=== PATIENT | male | born 1960 ===

== ENCOUNTER 2020-03-23 00:33 | Inpatient (IN) | payer SELFPAY ==
[2020-03-23] MEDS ORDERED: Metoprolol Tartrate 5 MG in Sodium Chloride 0.9% 50 ML IV ONE (01:24)
--- NOTE | 2020-03-23 01:31 | EDM.PDOC ---
ED HPI GENERAL MEDICAL PROBLEM - General Chief Complaint: General Stated Complaint: TWITCHING Time Seen by Provider: 03/23/20 00:45 Source of Information: Reports: Patient History Limitations: Reports: No Limitations - History of Present Illness INITIAL COMMENTS - FREE TEXT/NARRATIVE: patient presented to the ER due to '' uncontrollable tremors '' after a head injury due to fall 2 days ago. He reports that he slipped on ice and landed on the back of his head last Thursday ( 2 days ago), resulting on a wound that he decided to clean up. He isn't assure about an LOC. unwitnessed fall. Reports that he started to experience shakiness in b/l arms since then,, intermittent and worse on rest. It has slowly got worse over time ( more frequent ), and resolve when he moves around. No headache, no vision problems, no nausea/emesis, no weakness or numbness or incontinence. Not on any blood thinners. Reports a h/o HTN for which he used to take diuretics but he quit those few years ago. No PCP and not on any meds currently. From [place], here for [employer]. A experienced truck driver. h/o alcohol consumption. around 12 packs of beer daily, last consumption was yesterday. He was brought by EMS, and BP was noted to be high to 200/100 - Related Data Allergies Allergy/AdvReac Type Severity Reaction Status Date / Time No Known Allergies Allergy Verified 03/23/20 01:06 Past Medical History Cardiovascular History: Reports: Hypertension Respiratory History: Reports: None Gastrointestinal History: Reports: None Genitourinary History: Reports: None Endocrine/Metabolic History: Reports: None - Past Surgical History Head Surgeries/Procedures: Reports: None HEENT Surgical History: Reports: None Social & Family History - Tobacco Use Tobacco Use Status *Q: Never Tobacco User - Alcohol Use Days Per Week of Alcohol Use: 7 Number of Drinks Per Day: 6 Total Drinks Per Week: 42 - Recreational Drug Use Recreational Drug Use: No ED ROS GENERAL - Review of Systems Review Of Systems: Comprehensive ROS is negative, except as noted in HPI. Constitutional: Reports: No Symptoms HEENT: Reports: No Symptoms Respiratory: Reports: No Symptoms Cardiovascular: Reports: No Symptoms Endocrine: Reports: No Symptoms GI/Abdominal: Reports: No Symptoms : Reports: No Symptoms Neurological: Reports: Other (shakiness) ED EXAM, GENERAL - Physical Exam Exam: See Below Exam Limited By: No Limitations General Appearance: Alert, WD/WN, No Apparent Distress Eye Exam: Right Eye: Normal Inspection, PERRL Nose: Normal Inspection Head: Other (there is a 3cm laceration on the back of his head. no active bleeding) Respiratory/Chest: No Respiratory Distress, Lungs Clear, Normal Breath Sounds Cardiovascular: Normal Peripheral Pulses GI/Abdominal: Normal Bowel Sounds Extremities: Normal Inspection, No Pedal Edema Neurological: Alert, Oriented, CN II-XII Intact, No Motor/Sensory Deficits, Other (uncontrollable shakiness was noted b/l UEs). No: Memory Loss Remote Events, Memory Loss Recent Events, Sensory/Motor Deficit Psychiatric: Normal Affect, Normal Mood Skin Exam: Intact, Normal Color, No Rash Course - Vital Signs Last Recorded V/S: Last Vital Signs Temp 37.0 C 03/23/20 02:15 Pulse 79 03/23/20 02:35 Resp 16 03/23/20 02:35 BP 148/93 H 03/23/20 02:35 Pulse Ox 94 L 03/23/20 02:35 - Orders/Labs/Meds Orders: Active Orders 24 hr Category Date Time Status Head wo Cont [CT] Stat Exams 03/23/20 00:47 Ordered LORazepam [Ativan] Med 03/23/20 02:25 Active See Protocol IVPUSH Q4H PRN Medication Orders Lorazepam (Ativan) 0 mg IVPUSH Q4H PRN; Protocol PRN Reason: CIWWA Last Admin: 03/23/20 02:29 Dose: 1 mg Documented by: [id number] Labs: Laboratory Tests 03/23/20 03/23/20 03/23/20 Range/Units 01:30 01:40 01:40 WBC 6.4 (4.0-11.0) K/uL RBC 4.09 L (4.50-6.50) M/uL Hgb 13.7 (13.0-18.0) g/dL Hct 40.6 (40.0-54.0) % MCV 99 H (76-96) fL MCH 33.5 H (27.0-32.0) pg MCHC 33.7 (31.0-35.0) g/dL RDW 13.1 (11.0-16.0) % Plt Count 187 (150-400) K/uL MPV 10.1 H (6.0-10.0) fL Neut % (Auto) 60.2 (45.0-70.0) % Lymph % (Auto) 25.8 (20.0-40.0) % [place] % (Auto) 10.7 H (3.0-10.0) % Eos % (Auto) 3.0 (1.0-5.0) % Baso % (Auto) 0.3 (0.0-0.5) % Neut # (Auto) 3.87 (2.00-7.50) K/uL Lymph # (Auto) 1.66 (1.50-4.00) K/uL [place] # (Auto) 0.69 (0.20-0.80) K/uL Eos # (Auto) 0.19 (0.04-0.40) K/uL Baso # (Auto) 0.02 (0.02-0.10) K/uL PT (9.0-11.5) sec INR (1.0-3.5) Sodium 140 (136-145) mmol/L Potassium 4.1 (3.5-5.1) mmol/L Chloride 103 (98-107) mmol/L Carbon Dioxide 26.1 (21.0-32.0) mmol/L Anion Gap 15.0 (5.0-15.0) mmol/L BUN 15 (8-26) mg/dL Creatinine 0.99 (0.70-1.30) mg/dL Est Cr Clr Drug Dosing 83.46 mL/min Estimated GFR (MDRD) > 60 (>60) MLS/MIN BUN/Creatinine Ratio 15.2 (6-25) Glucose 103 H (74-100) mg/dL Calcium 8.9 (8.5-10.1) mg/dL Phosphorus 2.9 (2.5-4.9) mg/dL Magnesium 1.8 (1.8-2.4) mg/dL Total Bilirubin 0.2 (0.0-1.0) mg/dL AST 38 H (15-37) U/L ALT 66 (12-78) U/L Alkaline Phosphatase 101 (46-116) U/L Troponin I 0.020 (0.000-0.060) ng/mL Total Protein 7.1 (6.4-8.2) g/dL Albumin 3.9 (3.4-5.0) g/dL Globulin 3.2 (2.2-4.2) g/dL Albumin/Globulin Ratio 1.2 (0.8-2.0) 03/23/20 Range/Units 01:40 WBC (4.0-11.0) K/uL RBC (4.50-6.50) M/uL Hgb (13.0-18.0) g/dL Hct (40.0-54.0) % MCV (76-96) fL MCH (27.0-32.0) pg MCHC (31.0-35.0) g/dL RDW (11.0-16.0) % Plt Count (150-400) K/uL MPV (6.0-10.0) fL Neut % (Auto) (45.0-70.0) % Lymph % (Auto) (20.0-40.0) % [place] % (Auto) (3.0-10.0) % Eos % (Auto) (1.0-5.0) % Baso % (Auto) (0.0-0.5) % Neut # (Auto) (2.00-7.50) K/uL Lymph # (Auto) (1.50-4.00) K/uL [place] # (Auto) (0.20-0.80) K/uL Eos # (Auto) (0.04-0.40) K/uL Baso # (Auto) (0.02-0.10) K/uL PT 9.8 (9.0-11.5) sec INR 1.0 (1.0-3.5) Sodium (136-145) mmol/L Potassium (3.5-5.1) mmol/L Chloride (98-107) mmol/L Carbon Dioxide (21.0-32.0) mmol/L Anion Gap (5.0-15.0) mmol/L BUN (8-26) mg/dL Creatinine (0.70-1.30) mg/dL Est Cr Clr Drug Dosing mL/min Estimated GFR (MDRD) (>60) MLS/MIN BUN/Creatinine Ratio (6-25) Glucose (74-100) mg/dL Calcium (8.5-10.1) mg/dL Phosphorus (2.5-4.9) mg/dL Magnesium (1.8-2.4) mg/dL Total Bilirubin (0.0-1.0) mg/dL AST (15-37) U/L ALT (12-78) U/L Alkaline Phosphatase (46-116) U/L Troponin I (0.000-0.060) ng/mL Total Protein (6.4-8.2) g/dL Albumin (3.4-5.0) g/dL Globulin (2.2-4.2) g/dL Albumin/Globulin Ratio (0.8-2.0) Meds: Medications Generic Name Dose Route Start Last Admin Trade Name Freq PRN Reason Stop Dose Admin Lorazepam 0 mg 03/23/20 02:25 03/23/20 02:29 Ativan IVPUSH 1 mg Q4H PRN Administration CIWWA Protocol Discontinued Medications Generic Name Dose Route Start Last Admin Trade Name Freq PRN Reason Stop Dose Admin Clonidine HCl 0.1 mg 03/23/20 02:17 03/23/20 02:19 Catapres PO 03/23/20 02:18 0.1 mg ONETIME ONE Administration Clonidine HCl Confirm 03/23/20 02:29 Catapres Administered 03/23/20 02:30 Dose 0.1 mg .ROUTE .STK-MED ONE Metoprolol Tartrate 5 mg/ 55 mls @ 100 mls/hr 03/23/20 01:24 03/23/20 01:55 Sodium Chloride IV 03/23/20 01:56 100 mls/hr ONETIME ONE Administration Lorazepam 1 mg 03/23/20 02:07 03/23/20 02:07 Ativan IVPUSH 03/23/20 02:08 1 mg ONETIME ONE Administration Lorazepam Confirm 03/23/20 02:16 03/23/20 02:18 Ativan Administered 03/23/20 02:17 Not Given Dose 2 mg .ROUTE .STK-MED ONE Metoprolol Tartrate Confirm 03/23/20 01:57 03/23/20 01:56 Lopressor Administered 03/23/20 01:58 Not Given Dose 5 mg .ROUTE .STK-MED ONE - Re-Assessments/Exams Free Text/Narrative Re-Assessment/Exam: 03/23/20 02:42 upon arrival to the ER, he was connected to a monitor. BP was noted to be elevated to 190/110. HR 90's. RR18. CT head was ordered - possible 3mm SDH in the frontal sulci area, no mass or midline shift. labs - CBC, CMP were ordered. Mild elevation of AST. CIWA was measured - 9 score - c/w mild/mod symptoms. IV Ativan 1mg was given - this helped with the shakiness - was repeated for a total dose of 2mg in the ER. Lopressor 5 mg IV was given to control BP - which responded to it nicely discussed the findings with the patient given the concerns for DT - decision was to admit the patient to the floor for BP control and DT control. Also will repeat his CT scan of head in the morning - for comparison. Departure - Departure Time of Disposition: 02:40 Disposition: Admitted As Inpatient 65 Condition: Fair Clinical Impression: Delirium tremens Head injury Qualifiers: Encounter type: initial encounter Qualified Code(s): S09.90XA - Unspecified injury of head, initial encounter Hypertension Qualifiers: Hypertension type: unspecified Qualified Code(s): I10 - Essential (primary) hypertension - Discharge Information *PRESCRIPTION DRUG MONITORING PROGRAM REVIEWED*: Not Applicable *COPY OF PRESCRIPTION DRUG MONITORING REPORT IN PATIENT ARMANI: Not Applicable Referrals: PCP,None [Primary Care Provider] - Forms: ED Department Discharge Sepsis Event Note (ED) - Evaluation Sepsis Screening Result: No Definite Risk - Focused Exam Vital Signs: Vital Signs Temp Pulse Pulse Resp BP BP Pulse Ox 03/23/20 02:35 79 16 148/93 H 94 L 03/23/20 02:23 83 16 151/109 H 95 03/23/20 02:19 157/110 H 03/23/20 02:15 37.0 C 85 16 157/110 H 94 L 03/23/20 01:55 94 177/120 H 03/23/20 01:05 36.6 C 94 18 185/114 H 97 03/23/20 00:35 36.6 C 95 18 185/115 H 97 - Problem List & Annotations (1) Delirium tremens SNOMED Code(s): 9631959 Code(s): F10.231 - ALCOHOL DEPENDENCE WITH WITHDRAWAL DELIRIUM Status: Acute Priority: Medium Current Visit: Yes (2) Head injury SNOMED Code(s): 25873792 Code(s): S09.90XA - UNSPECIFIED INJURY OF HEAD, INITIAL ENCOUNTER Status: Acute Priority: Low Current Visit: Yes Qualifiers: Encounter type: initial encounter Qualified Code(s): S09.90XA - Unspecified injury of head, initial encounter (3) Hypertension SNOMED Code(s): 91306402 Code(s): I10 - ESSENTIAL (PRIMARY) HYPERTENSION Status: Acute Priority: Medium Current Visit: Yes Qualifiers: Hypertension type: unspecified Qualified Code(s): I10 - Essential (primary) hypertension - My Orders Last 24 Hours: My Active Orders 03/23/20 00:47 Head wo Cont [CT] Stat 03/23/20 02:25 LORazepam [Ativan] See Protocol IVPUSH Q4H PRN - Assessment/Plan Admission H&P: Please use this note as an admission H&P Last 24 Hours: My Active Orders 03/23/20 00:47 Head wo Cont [CT] Stat 03/23/20 02:25 LORazepam [Ativan] See Protocol IVPUSH Q4H PRN Plan: DT - follow CIWA protocol. Benzo, clonidine, banana bag HTN - will control with IV meds head injury - will repeat CT after 12 hrs for comparison
[2020-03-23] MEDS ORDERED: Metoprolol Tartrate 5 MG/5 ML SDV ONE (01:57)
[2020-03-23] MEDS ORDERED: LORazepam 2 MG/ML SDV IVPUSH ONE (02:07)
[2020-03-23] MEDS ORDERED: LORazepam 2 MG/ML SDV ONE (02:16)
[2020-03-23] MEDS ORDERED: cloNIDine 0.1 MG Tab PO ONE (02:17)
[2020-03-23] MEDS ORDERED: LORazepam 2 MG/ML SDV IVPUSH PRN ×2 (02:25→02:57)
[2020-03-23] MEDS ORDERED: cloNIDine 0.1 MG Tab ONE (02:29)
[2020-03-23] MEDS ORDERED: Lisinopril 2.5 MG Tab ONE (02:30)
[2020-03-23] MEDS ORDERED: LORazepam 1 MG Tab ONE ×2 (02:30→15:28)
[2020-03-23] MEDS ORDERED: Labetalol 100 MG/20 ML MDV IVPUSH PRN (02:58)
[2020-03-23] MEDS ORDERED: MVI, Adult with Vitamin K 10 ML, Thiamine 100 MG, Folic Acid 1 MG, Magnesium Sulfate 3 ... IV SCH ×5 (03:00)
[2020-03-23] MEDS ORDERED: Sodium Chloride 0.9% 50 ML ONE (09:55)
--- NOTE | 2020-03-23 11:05 | CT ---
CLINICAL DATA: Unexplained tremors. UNENHANCED BRAIN CT, 23 MARCH 2020: Multislice acquisition without IV contrast was performed. Repeat imaging was also performed. There is significant motion artifact on both series. There is mild atrophy. No masses or mass effect. No intracranial hemorrhage. No evidence of acute or subacute infarct. No osseous abnormalities. IMPRESSION: Suboptimal exam related to motion artifact. No acute abnormalities. Job: [id number] MTDD
[2020-03-23] MEDS ORDERED: Lisinopril 2.5 MG Tab PO SCH (11:45)
--- NOTE | 2020-03-23 15:03 | PCM.DCSUM1 ---
Discharge Summary - Hospital Course HPI Initial Comments: presented to the ER due to shakiness of b/l UEs. h/o + ETOH intake, 12 packs per day, last was 24 hr h/o head injury 2-3 days after a fall -didn't seek medical attention CT head in the ER wasn't conclusive - but showed a possible small frontal SDH was also found to have high BP SBP 190. was admitted to the floor for CIWA protocol, BP control and repeat CT head. Diagnosis: Stroke: No - Discharge Data Discharge Date: 03/23/20 Discharge Disposition: Home, Self-Care 01 Condition: Good - Referral to Home Health Primary Care Physician: PCP None - Discharge Diagnosis/Problem(s) (1) Delirium tremens SNOMED Code(s): 7618836 ICD Code: F10.231 - ALCOHOL DEPENDENCE WITH WITHDRAWAL DELIRIUM Status: Acute Priority: Medium Current Visit: Yes (2) Head injury SNOMED Code(s): 44583710 ICD Code: S09.90XA - UNSPECIFIED INJURY OF HEAD, INITIAL ENCOUNTER Status: Acute Priority: Low Current Visit: Yes Qualifiers: Encounter type: initial encounter Qualified Code(s): S09.90XA - Unspecified injury of head, initial encounter (3) Hypertension SNOMED Code(s): 84557227 ICD Code: I10 - ESSENTIAL (PRIMARY) HYPERTENSION Status: Acute Priority: Medium Current Visit: Yes Qualifiers: Hypertension type: unspecified Qualified Code(s): I10 - Essential (primary) hypertension - Patient Summary/Data Hospital Course: patient was admitted to the floor. CIWA protocol and ativan as needed Didn't require more ativan overnight and reports the shakiness have resolved and feeling better CT head was repeated - no e/o mass bleeding, questionable small 3mm SD hematoma or calcification - which is assuring since no changes in CT findings. BP was controlled with IV labetalol initially then with PO lisinopril tolerated PO diet and ambulating without distress. - Patient Instructions Diet: Heart Healthy Diet Activity: As Tolerated Driving: May Drive Today Showering/Bathing: May Shower Notify Provider of: Fever, Increased Pain, Swelling and Redness, Nausea and/or Vomiting - Discharge Plan *PRESCRIPTION DRUG MONITORING PROGRAM REVIEWED*: Not Applicable *COPY OF PRESCRIPTION DRUG MONITORING REPORT IN PATIENT ARMANI: Not Applicable Patient Handouts: Delirium Tremens, Hypertension, Adult Forms: ED Department Discharge Referrals: PCP,None [Primary Care Provider] - - Discharge Summary/Plan Comment DC Time >30 min.: Yes - General Info Functional Status: Reports: Pain Controlled, Tolerating Diet, Ambulating, Urinating, New Symptoms - Review of Systems General: Reports: No Symptoms HEENT: Reports: No Symptoms Pulmonary: Reports: No Symptoms Cardiovascular: Reports: No Symptoms Gastrointestinal: Reports: No Symptoms Genitourinary: Reports: No Symptoms Musculoskeletal: Reports: No Symptoms Skin: Reports: No Symptoms Neurological: Reports: No Symptoms Psychiatric: Reports: No Symptoms - Patient Data Vitals - Most Recent: Last Vital Signs Temp 37.1 C 03/23/20 09:09 Pulse 78 03/23/20 09:09 Resp 16 03/23/20 09:09 BP 175/100 H 03/23/20 12:14 Pulse Ox 95 03/23/20 09:09 Weight - Most Recent: 104.78 kg I&O - Last 24 hours: Intake & Output 03/22/20 03/23/20 03/23/20 22:59 06:59 14:59 Intake Total 295 Balance 295 Lab Results - Last 24 hrs: Laboratory Results - last 24 hr 03/23/20 03/23/20 03/23/20 Range/Units 01:30 01:40 01:40 WBC 6.4 (4.0-11.0) K/uL RBC 4.09 L (4.50-6.50) M/uL Hgb 13.7 (13.0-18.0) g/dL Hct 40.6 (40.0-54.0) % MCV 99 H (76-96) fL MCH 33.5 H (27.0-32.0) pg MCHC 33.7 (31.0-35.0) g/dL RDW 13.1 (11.0-16.0) % Plt Count 187 (150-400) K/uL MPV 10.1 H (6.0-10.0) fL Neut % (Auto) 60.2 (45.0-70.0) % Lymph % (Auto) 25.8 (20.0-40.0) % [place] % (Auto) 10.7 H (3.0-10.0) % Eos % (Auto) 3.0 (1.0-5.0) % Baso % (Auto) 0.3 (0.0-0.5) % Neut # (Auto) 3.87 (2.00-7.50) K/uL Lymph # (Auto) 1.66 (1.50-4.00) K/uL [place] # (Auto) 0.69 (0.20-0.80) K/uL Eos # (Auto) 0.19 (0.04-0.40) K/uL Baso # (Auto) 0.02 (0.02-0.10) K/uL PT (9.0-11.5) sec INR (1.0-3.5) Sodium 140 (136-145) mmol/L Potassium 4.1 (3.5-5.1) mmol/L Chloride 103 (98-107) mmol/L Carbon Dioxide 26.1 (21.0-32.0) mmol/L Anion Gap 15.0 (5.0-15.0) mmol/L BUN 15 (8-26) mg/dL Creatinine 0.99 (0.70-1.30) mg/dL Est Cr Clr Drug Dosing 83.46 mL/min Estimated GFR (MDRD) > 60 (>60) MLS/MIN BUN/Creatinine Ratio 15.2 (6-25) Glucose 103 H (74-100) mg/dL Calcium 8.9 (8.5-10.1) mg/dL Phosphorus 2.9 (2.5-4.9) mg/dL Magnesium 1.8 (1.8-2.4) mg/dL Total Bilirubin 0.2 (0.0-1.0) mg/dL AST 38 H (15-37) U/L ALT 66 (12-78) U/L Alkaline Phosphatase 101 (46-116) U/L Troponin I 0.020 (0.000-0.060) ng/mL Total Protein 7.1 (6.4-8.2) g/dL Albumin 3.9 (3.4-5.0) g/dL Globulin 3.2 (2.2-4.2) g/dL Albumin/Globulin Ratio 1.2 (0.8-2.0) SARS-CoV-2 RNA (GLADIS) (NEGATIVE) 03/23/20 03/23/20 Range/Units 01:40 02:45 WBC (4.0-11.0) K/uL RBC (4.50-6.50) M/uL Hgb (13.0-18.0) g/dL Hct (40.0-54.0) % MCV (76-96) fL MCH (27.0-32.0) pg MCHC (31.0-35.0) g/dL RDW (11.0-16.0) % Plt Count (150-400) K/uL MPV (6.0-10.0) fL Neut % (Auto) (45.0-70.0) % Lymph % (Auto) (20.0-40.0) % [place] % (Auto) (3.0-10.0) % Eos % (Auto) (1.0-5.0) % Baso % (Auto) (0.0-0.5) % Neut # (Auto) (2.00-7.50) K/uL Lymph # (Auto) (1.50-4.00) K/uL [place] # (Auto) (0.20-0.80) K/uL Eos # (Auto) (0.04-0.40) K/uL Baso # (Auto) (0.02-0.10) K/uL PT 9.8 (9.0-11.5) sec INR 1.0 (1.0-3.5) Sodium (136-145) mmol/L Potassium (3.5-5.1) mmol/L Chloride (98-107) mmol/L Carbon Dioxide (21.0-32.0) mmol/L Anion Gap (5.0-15.0) mmol/L BUN (8-26) mg/dL Creatinine (0.70-1.30) mg/dL Est Cr Clr Drug Dosing mL/min Estimated GFR (MDRD) (>60) MLS/MIN BUN/Creatinine Ratio (6-25) Glucose (74-100) mg/dL Calcium (8.5-10.1) mg/dL Phosphorus (2.5-4.9) mg/dL Magnesium (1.8-2.4) mg/dL Total Bilirubin (0.0-1.0) mg/dL AST (15-37) U/L ALT (12-78) U/L Alkaline Phosphatase (46-116) U/L Troponin I (0.000-0.060) ng/mL Total Protein (6.4-8.2) g/dL Albumin (3.4-5.0) g/dL Globulin (2.2-4.2) g/dL Albumin/Globulin Ratio (0.8-2.0) SARS-CoV-2 RNA (GLADIS) Negative (NEGATIVE) Med Orders - Current: Current Medications Labetalol HCl (Normodyne) 20 mg IVPUSH Q4H PRN; Protocol PRN Reason: blood pressure >150 Last Admin: 03/23/20 10:14 Dose: 20 ml Documented by: Lisinopril (Prinivil) 2.5 mg PO DAILY [facility] Last Admin: 03/23/20 12:14 Dose: 2.5 mg Documented by: Lorazepam (Ativan) 0 mg IVPUSH Q4H PRN; Protocol PRN Reason: CIWWA Last Admin: 03/23/20 02:29 Dose: 1 mg Documented by: Lorazepam (Ativan) 1 mg IVPUSH Q1H PRN PRN Reason: Agitation Discontinued Medications Clonidine HCl (Catapres) 0.1 mg PO ONETIME ONE Stop: 03/23/20 02:18 Last Admin: 03/23/20 02:19 Dose: 0.1 mg Documented by: Clonidine HCl (Catapres) Confirm Administered Dose 0.1 mg .ROUTE .STK-MED ONE Stop: 03/23/20 02:30 Last Admin: 03/23/20 02:51 Dose: Not Given Documented by: Metoprolol Tartrate 5 mg/ (Sodium Chloride) 55 mls @ 100 mls/hr IV ONETIME ONE Stop: 03/23/20 01:56 Last Admin: 03/23/20 01:55 Dose: 100 mls/hr Documented by: Multivitamins/Minerals 10 ml/Thiamine HCl 100 mg/ Folic Acid 1 mg/ Magnesium Sulfate 3 gm/ Sodium Chloride 1,017.2 mls @ 150 mls/hr IV ASDIRECTED [facility] Last Admin: 03/23/20 04:17 Dose: 150 mls/hr Documented by: Sodium Chloride (Normal Saline) Confirm Administered Dose 50 mls @ as directed .ROUTE .STK-MED ONE Stop: 03/23/20 09:56 Last Admin: 03/23/20 13:30 Dose: Not Given Documented by: Lorazepam (Ativan) 1 mg IVPUSH ONETIME ONE Stop: 03/23/20 02:08 Last Admin: 03/23/20 02:07 Dose: 1 mg Documented by: Lorazepam (Ativan) Confirm Administered Dose 2 mg .ROUTE .STK-MED ONE Stop: 03/23/20 02:17 Last Admin: 03/23/20 02:18 Dose: Not Given Documented by: Metoprolol Tartrate (Lopressor) Confirm Administered Dose 5 mg .ROUTE .STK-MED ONE Stop: 03/23/20 01:58 Last Admin: 03/23/20 01:56 Dose: Not Given Documented by: - Exam General: Reports: Alert, Oriented, Cooperative, No Acute Distress HEENT: Reports: Pupils Equal, Pupils Reactive, EOMI Neck: Reports: Supple Lungs: Reports: Clear to Auscultation, Normal Respiratory Effort Cardiovascular: Reports: Regular Rate, Regular Rhythm GI/Abdominal Exam: Normal Bowel Sounds, Soft, Non-Tender Extremities: Normal Inspection, Normal Range of Motion, Non-Tender Neurological: Reports: No New Focal Deficit, Normal Gait, Normal Speech, Normal Tone, Strength Equal Bilateral, Reflexes Equal Bilateral, Sensation Intact Psy/Mental Status: Reports: Alert, Normal Affect, Normal Mood
--- NOTE | 2020-03-25 07:05 | CT ---
Date of Service: 03/23/20 at 1405 hours Clinical Data: head injury UNENHANCED BRAIN CT: Multislice acquisition through the brain without IV contrast was performed. Comparison is made to a prior exam dated 03/23/20 at 0103 hours. No masses or mass effect. No intracranial hemorrhage. No evidence of acute or subacute infarct. There is a scalp hematoma in the right parietal and posterior parietal region. No fractures. IMPRESSION: No acute intracranial abnormalities. [id number] [facility]
== END 2020-03-23 03:45 | disposition home or self-care (01) | DRG 896 ==
LOC: LB.ED 00:33 → LB.MS 02:45
PROVIDERS: ADMIT Surgery; ATTEND Surgery
DX: F10.231 Alcohol dependence with withdrawal delirium (principal); S06.5X9A Traumatic subdural hemorrhage with loss of consciousness of unspecified duration, initial encounter; I10 Essential (primary) hypertension; Z20.828 Contact with and (suspected) exposure to other viral communicable diseases; W10.1XXA Fall (on)(from) sidewalk curb, initial encounter
CPT/HCPCS: 36415; 70450; 80053; 83735; 84100; 84484; 85025; 85610; A0425; A0429; A9270-GY; J2060; J3411; J3475; J3490; J7030; U0002